=== PATIENT | female | born 1960 | race Caucasian/White ===

== ENCOUNTER → 2016-05-21 | Outpatient (CLI) | payer OTHER | LOC: FIMAGING 13:01 | DX: Z12.31 Encounter for screening mammogram for malignant neoplasm of breast (principal) | CPT/HCPCS: G0202 ==

== ENCOUNTER → 2017-05-22 | Outpatient (CLI) | payer OTHER | LOC: FIMAGING 09:40 | PROVIDERS: ATTEND Obstetrics & Gynecology Gynecology | DX: Z12.31 Encounter for screening mammogram for malignant neoplasm of breast (principal); Z80.3 Family history of malignant neoplasm of breast ==

== ENCOUNTER → 2017-08-12 | Outpatient (CLI) | payer OTHER | LOC: FIMAGING 09:22 | PROVIDERS: ATTEND Internal Medicine | DX: Z13.820 Encounter for screening for osteoporosis (principal); M85.89 Other specified disorders of bone density and structure, multiple sites ==

== ENCOUNTER 2018-01-03 21:13 | Emergency (ER) | payer OTHER ==
--- NOTE | 2018-01-03 21:40 | EDPHY ---
H & P Stated Complaint: SLIPPED ON FLOOR MAT FELL HIT HEAD LACERATION, NO LOC Time Seen by Provider: 01/03/18 21:21 HPI/ROS: CHIEF COMPLAINT: Head injury HISTORY OF PRESENT ILLNESS: 57-year-old female with no anticoagulant use via private vehicle complaining of occipital hematoma and head injury after she slipped on her wet basement floor impacting the left occipital region of her head with no loss of consciousness. She is complaining of headache. This was a purely mechanical non syncopal episode. Denies midline C-spine pain. Denies peripheral paresthesia, weakness, numbness. Denies alcohol or drug use. Denies gait instability. REVIEW OF SYSTEMS: 10 systems reviewed and negative with the exception of the elements mentioned in the history of present illness PAST MEDICAL/SURGICAL HISTORY: no anticoagulant use, SOCIAL HISTORY: denies alcohol use at time of incident PHYSICAL EXAM 1) GENERAL: Well-developed, well-nourished, alert and oriented. Appears to be in no acute distress. Answering questions appropriately. 2) HEAD: Normocephalic, left occipital hematoma measuring 4 x 6 cm. No laceration no abrasion 3) HEENT: Pupils equal, round, reactive to light bilaterally. Negative [place]. Nasopharynx, oropharynx, clear. No deformity or angulation of nose. No septal hematoma. No rhinorrhea. No oral trauma. Ears bilaterally with normal tympanic membranes. No hemotympanum. No fluid or blood in the external auditory canal. No raccoon eyes. No Anand sign. Teeth are normally aligned with no gross malocclusion, TMJ bilaterally nontender, facial bones nontender including the zygomatic arch, maxilla mandible. 4) NECK: No cervical collar is on. Posterior cervical spine is nontender, no stepoff, no effusion. Full range of motion which does not elicit any midline cervical spine pain, no posterior midline tenderness, no step-off. 5) LUNGS: Clear to auscultation bilaterally, no wheezes, no rhonchi, no retractions. No obvious signs of trauma. No chest wall pain. No flaring, no grunting. Moving symmetrically. No crepitus. 6) HEART: [Regular rate and rhythm, 7) ABDOMEN: No guarding, no rebound, no focal tenderness, no peritoneal signs, no signs of trauma, no ecchymosis 8) MUSCULOSKELETAL: Moving all extremities, no focal areas of tenderness, no obvious trauma. 9) BACK: No midline vertebral tenderness, no fluctuance, no step-off, no obvious trauma, no visual or palpable abnormality. 10) SKIN: No laceration. No abrasion 11) NEURO: Awake, alert, and oriented to person, place and time. Answers questions appropriately. There were no obvious focal neurologic abnormalities. No cerebellar dysfunction. Normal steady gait. Upper and lower extremities bilaterally with strength 5 / 5, reflexes 2+. DIFFERENTIAL DIAGNOSIS: Not necessarily in any particular order, my differential diagnosis includes, but is not limited to, concussion, skull fracture, intraparenchymal contusion, subarachnoid, subdural and epidural hematoma. The patient understands that this diagnosis is provisional and can never be 100% accurate. - Personal History Current Tetanus/Diphtheria Vaccine: Yes Current Tetanus Diphtheria and Acellular Pertussis (TDAP): Yes - Medical/Surgical History Hx Asthma: No Hx Chronic Respiratory Disease: No Hx Diabetes: No Hx Cardiac Disease: No Hx Renal Disease: No Hx Cirrhosis: No Hx Alcoholism: No Hx HIV/AIDS: No Hx Splenectomy or Spleen Trauma: No Other PMH: THYROID, DPRESSION,. - Social History Smoking Status: Never smoked Constitutional: Initial Vital Signs Temperature (C) 37.1 C 01/03/18 21:16 Heart Rate 91 01/03/18 21:16 Respiratory Rate 18 01/03/18 21:16 Blood Pressure 139/85 H 01/03/18 21:16 O2 Sat (%) 96 01/03/18 21:16 O2 Delivery Mode Room Air Allergies/Adverse Reactions: iodine Allergy (Verified 01/03/18 21:18) Sulfa (Sulfonamide Antibiotics) Allergy (Verified 01/03/18 21:18) Home Medications: Medication Instructions Recorded Aspirin [Aspirin 81mg (*)] 81 mg PO DAILY 01/03/18 Levothyroxine [Synthroid 50 mcg 50 mcg PO DAILY06 01/03/18 (*)] buPROPion SR [Wellbutrin 100mg SR 450 mg PO BID 01/03/18 (*)] Medical Decision Making - Diagnostics Imaging Results: Imaging Impressions Head CT 01/03/18 21:37 Impression: 1. Left parietal scalp hematoma. 2. No skull fracture. 3. No intracranial hemorrhage or epidural/subdural hematoma. Findings and recommendations discussed with Emergency Department physician, Kenyon Jimenes PAC at 22:14 hour, 01/03/2018. Final report concurs with initial preliminary interpretation. Images reviewed myself ED Course/Re-evaluation: 9:38 p.m.: Head CT ordered in this patient for trauma for the following indication: severe headache. Patient has negative [place] C-spine decision- making tools. 10:13 p.m.: CT head interpreted by staff radiologist negative for posttraumatic sequelae. Images reviewed myself. 10:15 p.m.: Re-evaluation. Patient answering questions appropriately. Remains with a nonfocal neurologic exam. Plan will be discharge home with my usual and customary head injury precautions and instructions. I saw this patient independently based on established practice protocols. Care of patient under supervision of secondary supervising physician Dr Dwayne Marrero with whom I discussed case. Departure - Departure Disposition: Home, Routine, Self-Care Clinical Impression: Hematoma Head injury due to trauma Qualifiers: Encounter type: initial encounter Qualified Code(s): S09.90XA - Unspecified injury of head, initial encounter Condition: Good Instructions: Head Injury (ED) Additional Instructions: ALTHOUGH THERE IS NO EVIDENCE OF SERIOUS HEAD INJURY AT THIS TIME, DELAYED SIGNS CAN APPEAR 24 TO 48 HOURS AFTER INJURY. PLEASE RETURN TO THE EMERGENCY DEPARTMENT (ED) IMMEDIATELY IF YOU HAVE INCREASED HEADACHE, PERSISTENT HEADACHE , VOMITING, WEAKNESS, CONFUSION OR VISUAL PROBLEMS. WE RECOMMEND THAT YOU DO NOT RESUME CONTACT SPORTS OR ACTIVITIES THAT TAKE COORDINATION OR BALANCE SUCH SKIING OR RIDING A BICYCLE UNTIL CLEARED TO DO SO BY YOUR DOCTOR OR BY A NEUROLOGIST. Referrals: Arin Briseno MD [Primary Care Provider] - 1-2 days without fail
[2018-01-03 22:40] VITALS: BP 134/76
== END 2018-01-03 22:38 | disposition home or self-care (01) ==
DX: S09.90XA Unspecified injury of head, initial encounter (principal); S00.93XA Contusion of unspecified part of head, initial encounter; W01.0XXA Fall on same level from slipping, tripping and stumbling without subsequent striking against object, initial encounter; Y92.018 Other place in single-family (private) house as the place of occurrence of the external cause

== ENCOUNTER → 2018-05-27 | Outpatient (CLI) | payer OTHER | LOC: FIMAGING 08:30 | PROVIDERS: ATTEND Obstetrics & Gynecology Gynecology | DX: Z12.31 Encounter for screening mammogram for malignant neoplasm of breast (principal); Z80.3 Family history of malignant neoplasm of breast ==